=== PATIENT | male | born 1990 | race Caucasian/White ===

== ENCOUNTER 2024-01-27 23:26 | Inpatient (IN) ==
[2024-01-28 00:18] LABS: ABS Basophils 0.1 10^3/uL (0.0-0.1); ABS Eosinophils 0.2 10^3/uL (0.0-0.5); ABS Lymphocytes 2.5 10^3/uL (1.0-4.8); ABS Monocytes 0.7 10^3/uL (0.0-1.1); ABS Neutrophils 7.2 10^3/uL (1.5-7.6); ABS Nucleated RBC 0.03 10^3/ul; Eosinophil % 2.1 %; Hematocrit 49.7 % (38-53); Lymphocyte % 23.3 %; Mean Corpuscular Hemoglobin 33.5 pg (27-33); Mean Corpuscular Hgb Conc 36.2 g/dL (31-36); Mean Corpuscular Volume 92.6 fL (80-97); Mean Platelet Volume 8.7 fL (7.5-11.2); Nucleated Red Blood Cells % 0.3 %/100WBC (0.0-0.8); Platelet Count 219 10^3/uL (150-450); Red Blood Count 5.37 10^6/uL (4.06-5.63); Red Cell Distribution Width 15.3 % (12-17); White Blood Count 10.8 10^3/uL (3.6-10.2)
[2024-01-28 01:06] LABS: ALT 248 U/L (7-52); AST 198 U/L (13-39); Acetaminophen < 15 mcg/mL; Albumin 4.8 g/dL (3.2-5.2); Albumin/Globulin Ratio 1.4 (1-3); Alcohol, S 244 mg/dL (<13); Alkaline Phosphatase 125 U/L (35-149); Anion Gap 10 mmol/L (2-16); Blood Urea Nitrogen 5 mg/dL (6-24); CO2 Carbon Dioxide 27 mmol/L (22-32); Calcium 9.6 mg/dL (8.6-10.3); Chloride 102 mmol/L (101-111); Creatinine, Serum 0.82 mg/dL (0.67-1.17); Globulin 3.4 g/dL (2-4); Glucose 86 mg/dL (70-100); Salicylate < 2.50 mg/dL (<30); Sodium 139 mmol/L (135-145); Total Bilirubin 0.5 mg/dL (0.2-1.0); Total Protein 8.2 g/dL (6.4-8.9); eGFR CKD-EPI 119.7 (>60)
[2024-01-28 01:43] LABS: Urine Appearance Clear; Urine Bilirubin Negative (Negative); Urine Blood Negative (Negative); Urine Color Light-Yellow; Urine Glucose Negative (Negative); Urine Ketones Negative (Negative); Urine Nitrite Negative (Negative); Urine Protein Negative (Negative); Urine Specific Gravity 1.005 (1.002-1.030); Urine Urobilinogen Negative (Negative)
[2024-01-28 01:53] LABS: Urine Benzodiazepine Screen Presumptive Positive (None Detect); Urine Cannabinoids Screen None Detected (None Detect); Urine Opiates Screen None Detected (None Detect)
[2024-01-28] MEDS ORDERED: Al Hydrox/Mg Hydrox/Simet LIQ 30 ML UDC PO PRN (10:07)
[2024-01-28] MEDS: Multivitamins/Minerals TAB PO SCH (13:03)
[2024-01-28] MEDS: Thiamine 100 MG/ML 2 ml VIAL (200 mg) IM ONE (13:32)
[2024-01-29] MEDS ORDERED: Influenza vaccine *QUAD* *2023-24* 0.5 ML SYRINGE IM ONE (09:00)
[2024-01-30 09:03] LABS: HDL Cholesterol 67.8 mg/dL
[2024-01-30 10:13] VITALS: BP 117/80
== END 2024-01-30 18:10 | disposition home or self-care (01) | DRG 775 ==
LOC: ED 23:26 → EDHOLD 01-28 10:13 → BSU 01-28 11:25
PROVIDERS: ADMIT Psychiatry & Neurology Psychiatry; ATTEND Student in an Organized Health Care Education/Training Program